=== PATIENT | male | born 1995 | race Two or more races ===

== ENCOUNTER 2020-06-08 16:55 | Outpatient (REF) | payer OTHER, SELFPAY | END 2020-06-08 16:56 | disposition home or self-care (01) | LOC: HO.LAB 16:55 | PROVIDERS: Visit Provider Internal Medicine | DX: Z20.828 Contact with and (suspected) exposure to other viral communicable diseases (principal) | CPT/HCPCS: C9803; U0003 ==

== ENCOUNTER 2022-05-31 07:50 | Emergency (ER) | payer MEDICAID, SELFPAY ==
[2022-05-31 07:53] VITALS: BP 136/78; PULSE 94; RESP 18; TEMP 36.6; O2SAT 98; BMI 21.1
[2022-05-31 08:14] LABS: MANUAL DIFF FLAG NO
[2022-05-31 08:17] LABS: Basophils Percent Auto 0.1 % (0-2); Hematocrit 50.3 % (42.0-52.0); Hemoglobin 16.6 g/dl (14.0-18.0); Imm Gran Abs Auto 0.04 X10*3/uL (0.00-0.03); Imm Gran Pct Auto 0.4 % (0.0-0.4); Lymphocytes Absolute Auto 1.3 X10*3/uL (1.2-4.9); Lymphocytes Percent Auto 13.3 % (20-40); Mean Corpuscular Hemoglobin 29.4 pg (27.0-33.0); Mean Platelet Volume 10.3 fL (9.4-12.4); Monocytes Absolute Auto 0.7 X10*3/uL (0.1-1.2); Monocytes Percent Auto 7.2 % (2-11); Neutrophils Absolute Auto 7.9 x10*3/uL (2.0-8.3); Platelet Count 408 X10*3/uL (160-400); Red Blood Count 5.65 X10*6/uL (4.60-5.80); Red Cell Distribution Width 13.3 % (11.0-16.0)
[2022-05-31 08:38] LABS: Alanine Aminotransferase 23 U/L (0-40); Albumin Level 5.8 g/dL (3.5-5.0); Alkaline Phosphatase 98 U/L (39-117); Anion Gap 22 (12-20); Aspartate Amino Transferase 21 U/L (5-37); Bilirubin Direct 0.4 mg/dL (0.0-0.5); Blood Urea Nitrogen 24 mg/dL (9-16); Carbon Dioxide 28 mmol/L (22-29); Chloride 98 mmol/L (96-108); Creatinine Clr Calc Pharmacy 59.5; Estimated Glomerular Filt Rate > 60; Glucose Random 124 mg/dL (60-115); Lipase 17 U/L (8-78); Potassium 4.4 mmol/L (3.3-5.1); Sodium 144 mmol/L (135-145); Total Protein 9.3 g/dL (6.5-8.0)
[2022-05-31 08:56] LABS: COVID-19 Test Negative (Negative); IDNOW Serial# 16C4AD1C; IDNOW Serial# BCCEAD1C; Influenza A Negative (Negative); Influenza B2 Negative (Negative)
[2022-05-31 08:57] LABS: Bilirubin Total 1.1 mg/dL (0.0-1.0)
[2022-05-31 09:14] VITALS: BP 163/89; PULSE 84; RESP 20; TEMP 36.8; O2SAT 98
--- NOTE | 2022-05-31 09:33 | ED.NAVMDI ---
HPI - Nausea/Vomiting/Diarrhea General Chief complaint: Nausea/Vomiting/Diarrhea Stated complaint: Nausea Vomiting Time Seen by Provider: 05/31/22 09:11 Source: patient and family Mode of arrival: ambulatory Limitations: no limitations History of Present Illness HPI Narrative: 27 year old male with no significant past medical history presents to the Emergency Department, with his fiance, for complaints of nausea and vomiting since Sunday. He denies any know illness, sick contacts, or food born illness. His last episode of vomiting was earlier this morning. He denies any diarrhea or constipation with last BM yesterday, 05/30/22. He denies and hematochezia or hematuria. He denies any fever, chills, headache, vision changes, or dizziness. MD elicited complaint: nausea and vomiting Onset (ago): day(s) Description of vomiting: bilious Associated nausea: Yes Location of pain: none Related Data Previous Rx's Medication Instructions Recorded ondansetron 4 mg disintegrating 4 mg PO Q8H #14 tabs 05/31/22 tablet pantoprazole 20 mg tablet,delayed 20 mg PO DAILY #7 tabs 05/31/22 release (Protonix) Allergies Allergy/AdvReac Type Severity Reaction Status Date / Time No Known Allergies Allergy Unverified 03/11/20 16:20 Review of Systems Review of Systems: Yes all other systems are reviewed and are negative Constitutional: Constitutional: Reports no additional constitutional complaints, Denies body ache(s), Denies chills, Denies excessive sweating, Denies fever(s) and Denies weight loss Eyes: Eyes: Reports no additional eye complaints and Denies change in vision ENT: Reports system reviewed and no additional complaints, except as documented, Reports Normal hearing present and Denies sore throat Cardiovascular: Cardiovascular: Reports no additional cardiovascular complaints, Denies chest pain and Denies dyspnea Respiratory: Respiratory: Reports no additional respiratory complaints, Denies pain on inspiration and Denies dyspnea Gastrointestinal: Gastrointestinal: Reports no additional gastrointestinal complaints, Denies abdominal pain, Denies melena, Denies hematochezia, Denies constipation, Reports dyspepsia, Denies diarrhea, Reports nausea and Reports vomiting Genitourinary: Genitourinary: Reports no additional male genitourinary complaints and Denies difficulty urinating Musculoskeletal: Musculoskeletal: Reports no additional musculoskeletal complaints, Denies numbness and Denies tingling Integumentary/Breasts: Skin/Breast: Reports system reviewed and no additional complaints, except as docu, Denies pruritus, Denies lesions, Denies rash and Denies sores Neurologic: Reports system reviewed and no additional complaints, except as documented, Reports Normal hearing present, Denies numbness and Denies tingling Endocrine: Endocrine: Reports no additional endocrine complaints, Denies excessive sweating, Denies polyphagia, Denies polydipsia and Denies polyuria [facility] Past Medical History Attestation statement: The following information was validated with the patient. Source: old records reviewed Medical History No pertinent past medical history Social History Social History Alcohol intake: never Smoked in Last 30 Days: No Use of substances other than those prescribed or required for medical reasons: No Advance Directives: No Physical Exam Vital Signs: Vital Signs: Last Vital Signs Temp 98.3 F 05/31/22 09:14 Pulse 96 05/31/22 11:42 Resp 16 05/31/22 11:42 BP 137/74 05/31/22 11:42 Pulse Ox 98 05/31/22 11:42 O2 Del Method 05/31/22 11:42 BMI result Body Mass Index 21.1 Const: General: cooperative, alert and awake Nutritional Appearance: average body habitus Orientation/consciousness: patient oriented x3 Limitations: no limitations HEENT: Head: Yes normal to inspection and Yes atraumatic Ears: hearing grossly normal bilaterally and external ears normal General nose exam: Normal external nose present and Normal nares present Face and sinus: Yes normal facial exam and Yes face symmetric Mouth: Normal oral and palatal mucosa present Teeth and gingiva: dentition normal Throat: Yes posterior oropharynx normal Eyes: General: appearance normal, both eyes and all related structures Visual Curry: normal visual curry by confrontation Alignment and Position: alignment normal Periorbital: periorbital findings normal Eyelids: Yes eyelids normal Conjunctivae: conjunctivae normal Sclerae: sclerae normal Corneas: corneas normal Pupils: Equal, round and reactive pupils present EOM: EOMs intact bilaterally Neck: Neck: Yes normal visual inspection and Yes full ROM Chest: Chest palpation & inspection: normal inspection of the chest Resp: Effort & Inspection: normal respiratory effort Auscultation: clear to auscultation bilaterally, no crackles, no rhonchi and no wheezes Cardio: Rate: regular rate Rhythm: regular rhythm GI: Inspection: Yes normal to inspection Palpation (GI): Soft to palpation and nontender Auscultation: normal bowel sounds : General: Yes no CVA tenderness Back/Spine/Pelvis: Back: no CVA tenderness Cervical Spine: cervical ROM normal Thoracic/Lumbar Spine: thoraco-lumbar ROM normal Skin: General skin exam: no rashes or lesions noted Neuro: General: patient oriented x3 Cranial nerves: Yes Equal, round and reactive pupils present and Yes Normal hearing present Cognition (Neuro): normal cognition Gait exam (Neuro): Normal gait present Motor exam (neuro): 5/5 motor strength present throughout Extrem: General: Yes normal to inspection, Yes full ROM and Yes capillary refill normal Psych: Appearance: grossly normal Mental Status: mental status grossly normal Speech and movement: Normal speech and movement present Affect: normal affect Attitude: cooperative Course Course Course Narrative: 929: Plan for 1 L NS bolus for treatment of dehydration and Zofran for nausea. 1115: Pt states he is feeling 'a little bit better', however; requests additonal antiemetics. Compazine and 1 L NS bolus ordered. 1220: Pt sitting up tolerating liquids. States he is feeling 'much better'. Pt safe for discharge. Medications Administered Generic Name Dose Route Start Last Admin Trade Name Freq PRN Reason Stop Dose Admin Sodium Chloride 1,000 mls @ 999 mls/hr 05/31/22 11:30 05/31/22 11:39 Ns IV 05/31/22 12:30 999 mls/hr .Q1H1M RUBÉN Administration Discontinued Medications Generic Name Dose Route Start Last Admin Trade Name Freq PRN Reason Stop Dose Admin Sodium Chloride 1,000 mls @ 999 mls/hr 05/31/22 09:30 05/31/22 10:55 Ns IV 05/31/22 10:30 Infused .Q1H1M RUBÉN Infusion Ondansetron HCl 4 mg 05/31/22 09:24 05/31/22 09:51 Ondansetron Hcl 4 Mg/2 Ml Vial IVPUSH 05/31/22 09:25 4 mg ONCE ONE Administration Prochlorperazine Edisylate 10 mg 05/31/22 11:20 12/07/22 11:39 Prochlorperazine Edisylate 10 Mg/2 Ml Vial IVPUSH 05/31/22 11:21 10 mg ONCE ONE Administration Medical Decision Making Medical Decision Making MDM Narrative: 27 year old male with no significant past medical history presents to the Emergency Department, with his fiance, for complaints of nausea and vomiting since Sunday. Zofran and 1L NS bolus given for treatment of nausea and dehydration with moderate effect in symptoms. Additional 1 L NS bolus given and compazine with good effect. Pt tolerating PO without any nausea or vomiting and well appearing. Plan to discharge patient with zofran and protonix for management of symptoms and to encourage PO fluid intake. Presentation consistent with uncomplicated gastroenteritis. Low suspicion for IBS or SBO. Physical, history, diagnostics, and plan discussed with patient with no unanswered questions. Educated to begin eating a bland diet such as bananas, apples, plain white rice, toast to allow the stomach to rest. Educated to return to the emergency room with worsening symptoms, inability to tolerate solid foods or liquids, blood in your vomit or stools, abdominal pain, or any other concerning symptoms. Recommended follow-up with the primary care provider for further recommendations and management. Discharge Plan Discharge Clinical Impression: Nausea & vomiting Patient Disposition: Home, Self-Care Additional Instructions: Two prescriptions were sent to [facility] on [facility] for treatment of nausea and stomach protection. Please take medications as prescribed. Begin eating a bland diet such as bananas, apples, plain white rice, toast may help your stomach. Please return to the emergency room with worsening symptoms, inability to tolerate solid foods or liquids, blood in your vomit or stools, abdominal pain, or any other concerning symptoms. Recommended follow-up with the primary care provider for further recommendations and management. Prescriptions: New ondansetron 4 mg tablet,disintegrating 4 mg PO Q8H Qty: 14 0RF pantoprazole [Protonix] 20 mg tablet,delayed release (DR/EC) 20 mg PO DAILY Qty: 7 0RF Referrals: [facility] [place] [facility] [place]] [facility] [place] [facility] [place]] [facility] [place] [facility] [place] Group] Stand Alone Forms: Work/School Release Print Language: Tamazight
[2022-05-31] MEDS: 0.9 % Sodium Chloride 1,000 ML 999 ML IV ×2 (09:49→11:39)
[2022-05-31] MEDS: ondansetron HCL 4 MG/2 ML VIAL IVPUSH (09:51)
--- NOTE | 2022-05-31 09:54 | PC.NURSE ---
pt a&ox3, iv inserted, labs previously drawn, ivf hung per order, pt medicated with zofran for nausea- no vomiting at this time, vss, call looney within reach, will continue to monitor
[2022-05-31] MEDS: Prochlorperazine Edisylate 10 MG/2 ML VIAL IVPUSH (11:39)
[2022-05-31 11:42] VITALS: BP 137/74; PULSE 96; RESP 16; O2SAT 98
== END 2022-05-31 13:23 | disposition home or self-care (01) ==
PROVIDERS: Emergency Provider Emergency Medicine Emergency Medical Services
DX: R11.2 Nausea with vomiting, unspecified (principal); Z79.899 Other long term (current) drug therapy; Z20.822 Contact with and (suspected) exposure to COVID-19
CPT/HCPCS: 80048; 80076; 83690; 85025; 87502; 87635; 96361; 96374; 96375; 99284; J2405